=== PATIENT | female | born 1960 | race Caucasian/White ===

== ENCOUNTER 2018-12-24 06:47 | Emergency (ER) | payer BC, SELFPAY ==
[2018-12-24 06:53] VITALS: BP 153/92; PULSE 89; RESP 20; TEMP 37.5; O2SAT 97
[2018-12-24] MEDS: Dexamethasone 4 MG TAB 8 MG PO (07:30)
--- NOTE | 2018-12-24 07:40 | ED.GENADUL_ITS ---
Discharge Plan Disposition Patient Disposition: HOME Condition: Stable Discharge Details Chief Complaint: FacialProb Clinical Impression: Adverse drug reaction Primary Care Provider: Lois Rosa ED Provider: Medardo Moreira Home Meds and New Rx's Prescriptions: New dexamethasone [dexamethasone] 4 MG tablet 8 mg PO DAILY Qty: 4 RF: 0 No Action Ibuprofen [Ibuprofen Ib] 200 MG Tablet 800 mg PO TID PRN PRNRF: 0 Discharge Instructions Additional Instructions: 1. Drink plenty of fluids. 2. Continue all medications as prescribed. 3. Acetaminophen 1000mg every 4 hours (up to 5 time a day) and/or ibuprofen 600mg every 6 hours as needed for fever or pain. 4. Decadron 8 mg once a day starting tomorrow 5. Benadryl 25-50 mg every 6 hours as needed 6. Ranitidine 300 mg once a day at bedtime as needed. Return to the Emergency Department (ED) if your condition worsens, does not improve as expected, or for ANY other concerns. Specifically, return if you have new or uncontrolled pain, worsening fever, difficulty breathing, vomiting, or are unable to drink fluids. Medical Decision Making Recent reaction to a dental implant with subsequent bone graft and limited treatment with amoxicillin. Completed her full course of antibiotics yesterday and then subsequently developed a generalized truncal rash which now involves her face at this morning. Rash is pruritic and mildly improved after she took oral diphenhydramine. Presents with persistent swelling, generalized exanthem, and mild subjective throat fullness when she swallows. Exam significant for generalized maculopapular rash with mild facial swelling. Otherwise nonfocal exam including no clinical evidence of worsening infective process at her tooth transplant site. Treated here with oral Decadron and oral ranitidine. Discharged home with a prescription for Decadron. She will follow-up with her oral surgeon today and return here for any worsening or concerning symptoms. Pt evaluated immediately prior to discharge with improved symptoms, normal vital signs, and tolerating PO. The patient feels appropriate for discharge home. Discussed clinical/diagnostic findings. Discharged with a clear plan for outpatient follow up. Given usual and customary return instructions prior to discharge. Differential Diagnosis Dental infection, cellulitis, Armando-Daroi syndrome Medical Records Medical records reviewed: Yes I reviewed the patient's medical records. HPI 58-year-old woman with an unremarkable past medical history. Had a dental implant placed in October which subsequently had a significant reaction and was removed. A bone graft was successfully placed and she recently completed a full course of amoxicillin with associated resolution of soft tissue swelling. She completed her last dose of amoxicillin yesterday. During the day, she developed a generalized pruritic rash on her trunk which has since spread. This morning, she noted worsened rash, pruritus, and bilateral facial swelling. She took 2 oral Benadryl with moderate improvement in subjective pruritus. However, presents with persistent facial swelling and a generalized pruritic exam. She notes mild subjective throat fullness when she swallows. Otherwise denies dyspnea, significant throat tightness, palpitations, or subjective lightheadedness. She has no history of previous similar symptoms. She does note that the implant area has been stable in terms of pain/tenderness has had no increase in erythema, tenderness, or local swelling. General Date/Time Provider Initiated Documentation: 12/24/18 07:22 . Related Data Home Medications Medication Instructions Recorded Confirmed Ibuprofen [Ibuprofen Ib] 800 mg PO TID PRN PRN 12/08/17 12/24/18 dexamethasone 8 mg PO DAILY #4 tab 12/24/18 Previous Rx's Medication Instructions Recorded dexamethasone 8 mg PO DAILY #4 tab 12/24/18 Allergies Allergy/AdvReac Type Severity Reaction Status Date / Time No Known Allergies Allergy Unverified 12/24/18 06:56 General Stated Complaint: FacialProb TAM: 3 Review of Systems Review of Systems All systems are reviewed and are unremarkable except as noted in HPI and below: CONSTITUTIONAL: no fevers/chills, no weakness or change in appetite EYES: no change in vision HEENT: no throat pain; mild throat fullness with swallowing; no neck pain CARDIOVASCULAR: no chest pain, palpitations, leg swelling, or diaphoresis RESPIRATORY: no cough, dyspnea, wheezing GASTROINTESTINAL: no abdominal pain, melena, nausea/emesis GENITOURINARY: no dysuria, flank pain, MUSCULOSKELETAL: no pack pain, myalgias, arthralgias INTEGUMENTARY: Generalized truncal exanthem; bilateral facial swelling with fine rash, no wounds NEUROLOGIC: no headache, focal weakness, difficulty with speech, numbness PSYCHIATRIC: no confusion, no anxiety HEME: no easy bruising or bleeding ALLERGIC: no urticaria PFSH Social History Smoking/Tobacco Use Status: Never Alcohol Intake: never Substance use type: does not use Do you feel safe in your relationship?: Yes Exam Narrative Exam Narrative: Nursing note and vital signs have been reviewed and noted. GENERAL: alert, active, no acute distress, well -hydrated, well-nourished HEENT: atraumatic/normocephalic, PERRLA, EOMI, conjunctiva clear, external ears/canals normal, nasal mucosa normal; right upper incisor graft site with no significant soft tissue swelling, tenderness, or fluctuance. NECK: supple, full range of motion CARDIOVASCULAR: nl pulses, no edema PULMONARY: nl effort, no audible wheezing or stridor ABDOMEN: non-distended EXTREMITY: normal muscle tone, all joints with FROM, no deformity NUERO: normal mentation, moving all extremities, normal stance and gait, PSYCH: alert and oriented SKIN: Generalized truncal macular papular exanthem; bilateral facial swelling with fine generalized exanthem Course Vital Signs Temperature 99.5 F 12/24/18 06:53 Pulse 89 12/24/18 06:53 Respiratory Rate 20 12/24/18 06:53 Blood Pressure 153/92 H 12/24/18 06:53 Pulse Oximetry 97 12/24/18 06:53 Temperature 99.5 F 12/24/18 06:53 Temperature Source Temporal Artery Scan 12/24/18 06:53 Pulse 89 12/24/18 06:53 Respiratory Rate 20 12/24/18 06:53 Respiratory Effort Non-Labored 12/24/18 06:53 Blood Pressure 153/92 H 12/24/18 06:53 Pulse Oximetry 97 12/24/18 06:53 Oxygen Delivery Method Room Air 12/24/18 06:53 Oxygen Flow Rate 0 12/24/18 06:53 Pain Level 1 12/24/18 06:56
[2018-12-24 07:49] VITALS: BP 153/92; PULSE 89; RESP 20; TEMP 37.5; O2SAT 97
== END 2018-12-24 07:48 | disposition home or self-care (01) ==
PROVIDERS: Emergency Provider Emergency Medicine; PCP Nurse Practitioner Family
DX: R21 Rash and other nonspecific skin eruption (principal); R22.0 Localized swelling, mass and lump, head; Z98.818 Other dental procedure status
CPT/HCPCS: 99283; J8540

== ENCOUNTER 2019-01-29 11:43 | Emergency (ER) | payer BC, SELFPAY ==
[2019-01-29 11:54] VITALS: BP 124/83; PULSE 76; RESP 14; TEMP 36.5; O2SAT 97
--- NOTE | 2019-01-29 12:15 | W.ED.GENAD ---
Discharge Plan Disposition Patient Disposition: HOME Condition: Fair Discharge Details Chief Complaint: Laceration Clinical Impression: Puncture wound of hand Primary Care Provider: Lois Rosa ED Provider: Aminta Avitia Home Meds and New Rx's Prescriptions: New clindamycin HCl 150 mg capsule 450 mg PO TID Qty: 45 RF: 0 Continued mometasone [Nasonex] 50 mcg/actuation [place],Non-Aerosol 1 spray Intranasal PRN PRNRF: 0 Discharge Instructions Instructions: Puncture Wound (ED) Additional Instructions: Keep wound clean, dry, covered. Please monitor for signs of infection including redness, warmth, drainage, increased pain, fever/chills. If these arise please begin antibiotic as prescribed. If you begin the antibiotic please take the entire course even if symptoms improve. Symptoms increase please seek care urgently once again. Please follow-up with primary care next week if needed. Referrals: Lois Rosa [Primary Care Provider] - Discharge Data Discharge Date/Time-TO BE ENTERED AT DEPARTURE: 01/29/19 12:33 Medical Decision Making Patient is a [id number] 58-year-old female presenting today for a laceration on the right palm. She reports a prior to arrival she was trying to remove the pit from an avocado with the point of knife when she slipped impaling herself. She denies any altered sensation. Denies any weakness in the hand. Wound is on the radial side of the palm just proximal to the MCP joint. Approximately 4 mm in width. There is a small amount of fatty tissue extruding from the wound. Two-point discrimination is intact, ligamentous exam is intact. At this point, this appears to be more of a puncture wound than a superficial laceration, I am hesitant to close this is I am concerned with the increased risk of infection. Patient is unclear of tetanus, we will check this and update today if needed. Wound was flushed and cleansed by myself. Dressing applied by nursing staff. Patient I discussed wound care and. As we are going to the weekend, I will prescribe antibiotic for watch and wait approach in the event that infection becomes evident. She was given strict return precautions and advised follow-up with primary care next week as needed. All the questions and concerns were addressed and she is in agreement this plan HPI General Mode of arrival: ambulatory. Date/Time Provider Initiated Documentation: 01/29/19 11:53. Limitations to Documentation: no limitations. Information obtained by: patient and RN notes reviewed. History of Present Illness 58 year old F presents to the emergency department with the chief complaint of right palm laceration, described as mild, with intensity rated at 2. Quality is described as aching, and is localized to the left and upper extremity. Patient reports no radiation. Patient started experiencing this minute(s) and it has been constant. No relieving factors improve symptom(s), No exacerbating factors reported . Patient notes no other symptoms.. Patient did receive the following treatments prior to arrival, none Related Data Home Medications Medication Instructions Recorded Confirmed clindamycin HCl 450 mg PO TID #45 cap 01/29/19 mometasone [Nasonex] 1 spray INTRANASAL PRN PRN 01/29/19 01/29/19 Previous Rx's Medication Instructions Recorded clindamycin HCl 450 mg PO TID #45 cap 01/29/19 Allergies Allergy/AdvReac Type Severity Reaction Status Date / Time amoxicillin AdvReac Intermediate rash/throat Unverified 01/29/19 11:58 feels thick gold Au 198 AdvReac Mild scrathcy Unverified 01/29/19 11:59 rash nickel AdvReac Mild scratchy Unverified 01/29/19 11:59 rash General Stated Complaint: Laceration TAM: 4 Review of Systems Constitutional Reports as per HPI, Denies chills and Denies fever(s) Musculoskeletal Reports as per HPI Integumentary/Breasts Reports as per HPI Neurologic Reports as per HPI, Denies sensory deficit and Denies paresthesias PFSH Social History Smoking/Tobacco Use Status: Never Alcohol Intake: never Substance use type: does not use Do you feel safe at home: Yes Do you feel safe in your relationship?: Yes Exam Const General: cooperative, healthy appearing, comfortable, no acute distress and well developed Nutritional Appearance: average body habitus and well nourished Orientation: alert and awake Resp Effort & Inspection: normal respiratory effort, able to speak in complete sentences and no respiratory distress Cardio Rate: regular rate Rhythm: regular rhythm Skin Trauma: laceration (5mm lac to right palm, not actively bleeding) Neuro General: alert and awake Cognition: normal cognition Speech: speech normal Gait: normal gait Sensory Exam: no sensory deficits noted Extrem General: abnormal to inspection (laceration as above), full ROM, normal capillary refill, no joint enlargement and no clubbing, cyanosis or edema Right upper extremity: full ROM, normal capillary refill, no joint enlargement and hand Details: normal capillary refill, neuromotor exam normal, neurosensory exam normal, tendon exam normal, tenderness (around laceration) and normal ROM of fingers; abnormal to inspection (laceration) and no cyanosis Psych Appearance: grossly normal and well kempt Mental Status: mental status grossly normal Speech and Movement: speech and movement normal Course Vital Signs Temperature 36.5 C 01/29/19 11:54 Pulse 76 01/29/19 11:54 Respiratory Rate 14 01/29/19 11:54 Blood Pressure 124/83 01/29/19 11:54 Pulse Oximetry 97 01/29/19 11:54 Temperature 36.5 C 01/29/19 11:54 Temperature Source Skin 01/29/19 11:54 Pulse 76 01/29/19 11:54 Respiratory Rate 14 01/29/19 11:54 Blood Pressure 124/83 01/29/19 11:54 Blood Pressure Position Sitting 01/29/19 11:54 Pulse Oximetry 97 01/29/19 11:54 Oxygen Delivery Method Room Air 01/29/19 11:54 Oxygen Flow Rate 0 01/29/19 11:54 Pain Level 2 01/29/19 12:01
--- NOTE | 2019-01-29 12:24 | ED.GENADUL_ITS ---
Discharge Plan Disposition Patient Disposition: HOME Condition: Fair Discharge Details Chief Complaint: Laceration Clinical Impression: Puncture wound of hand Primary Care Provider: Lois Rosa ED Provider: Aminta Avitia Home Meds and New Rx's Prescriptions: New clindamycin HCl 150 mg capsule 450 mg PO TID Qty: 45 RF: 0 Continued mometasone [Nasonex] 50 mcg/actuation [place],Non-Aerosol 1 spray Intranasal PRN PRNRF: 0 Discharge Instructions Instructions: Puncture Wound (ED) Additional Instructions: Keep wound clean, dry, covered. Please monitor for signs of infection including redness, warmth, drainage, increased pain, fever/chills. If these arise please begin antibiotic as prescribed. If you begin the antibiotic please take the entire course even if symptoms improve. Symptoms increase please seek care urgently once again. Please follow-up with primary care next week if needed. Referrals: Lois Rosa [Primary Care Provider] - Discharge Data Discharge Date/Time-TO BE ENTERED AT DEPARTURE: 01/29/19 12:33 Medical Decision Making Patient is a [id number] 58-year-old female presenting today for a laceration on the right palm. She reports a prior to arrival she was trying to remove the pit from an avocado with the point of knife when she slipped impaling herself. She denies any altered sensation. Denies any weakness in the hand. Wound is on the radial side of the palm just proximal to the MCP joint. Approximately 4 mm in width. There is a small amount of fatty tissue extruding from the wound. Two-point discrimination is intact, ligamentous exam is intact. At this point, this appears to be more of a puncture wound than a superficial laceration, I am hesitant to close this is I am concerned with the increased risk of infection. Patient is unclear of tetanus, we will check this and update today if needed. Wound was flushed and cleansed by myself. Dressing applied by nursing staff. Patient I discussed wound care and. As we are going to the weekend, I will prescribe antibiotic for watch and wait approach in the event that infection becomes evident. She was given strict return precautions and advised follow-up with primary care next week as needed. All the questions and concerns were addressed and she is in agreement this plan HPI General Mode of arrival: ambulatory . Date/Time Provider Initiated Documentation: 01/29/19 11:53 . Limitations to Documentation: no limitations . Information obtained by: patient and RN notes reviewed . History of Present Illness 58 year old F presents to the emergency department with the chief complaint of right palm laceration, described as mild, with intensity rated at 2. Quality is described as aching, and is localized to the left and upper extremity. Patient reports no radiation. Patient started experiencing this minute(s) and it has been constant. No relieving factors improve symptom(s), No exacerbating factors reported . Patient notes no other symptoms.. Patient did receive the following treatments prior to arrival, none Related Data Home Medications Medication Instructions Recorded Confirmed clindamycin HCl 450 mg PO TID #45 cap 01/29/19 mometasone [Nasonex] 1 spray INTRANASAL PRN PRN 01/29/19 01/29/19 Previous Rx's Medication Instructions Recorded clindamycin HCl 450 mg PO TID #45 cap 01/29/19 Allergies Allergy/AdvReac Type Severity Reaction Status Date / Time amoxicillin AdvReac Intermediate rash/throat Unverified 01/29/19 11:58 feels thick gold Au 198 AdvReac Mild scrathcy Unverified 01/29/19 11:59 rash nickel AdvReac Mild scratchy Unverified 01/29/19 11:59 rash General Stated Complaint: Laceration TAM: 4 Review of Systems Constitutional Reports as per HPI, Denies chills and Denies fever(s) Musculoskeletal Reports as per HPI Integumentary/Breasts Reports as per HPI Neurologic Reports as per HPI, Denies sensory deficit and Denies paresthesias PFSH Social History Smoking/Tobacco Use Status: Never Alcohol Intake: never Substance use type: does not use Do you feel safe at home: Yes Do you feel safe in your relationship?: Yes Exam Const General: cooperative, healthy appearing, comfortable, no acute distress and well developed Nutritional Appearance: average body habitus and well nourished Orientation: alert and awake Resp Effort & Inspection: normal respiratory effort, able to speak in complete sentences and no respiratory distress Cardio Rate: regular rate Rhythm: regular rhythm Skin Trauma: laceration (5mm lac to right palm, not actively bleeding) Neuro General: alert and awake Cognition: normal cognition Speech: speech normal Gait: normal gait Sensory Exam: no sensory deficits noted Extrem General: abnormal to inspection (laceration as above), full ROM, normal capillary refill, no joint enlargement and no clubbing, cyanosis or edema Right upper extremity: full ROM, normal capillary refill, no joint enlargement and hand Details: normal capillary refill, neuromotor exam normal, neurosensory exam normal, tendon exam normal, tenderness (around laceration) and normal ROM of fingers; abnormal to inspection (laceration) and no cyanosis Psych Appearance: grossly normal and well kempt Mental Status: mental status grossly normal Speech and Movement: speech and movement normal Course Vital Signs Temperature 36.5 C 01/29/19 11:54 Pulse 76 01/29/19 11:54 Respiratory Rate 14 01/29/19 11:54 Blood Pressure 124/83 01/29/19 11:54 Pulse Oximetry 97 01/29/19 11:54 Temperature 36.5 C 01/29/19 11:54 Temperature Source Skin 01/29/19 11:54 Pulse 76 01/29/19 11:54 Respiratory Rate 14 01/29/19 11:54 Blood Pressure 124/83 01/29/19 11:54 Blood Pressure Position Sitting 01/29/19 11:54 Pulse Oximetry 97 01/29/19 11:54 Oxygen Delivery Method Room Air 01/29/19 11:54 Oxygen Flow Rate 0 01/29/19 11:54 Pain Level 2 01/29/19 12:01
== END 2019-01-29 12:33 | disposition home or self-care (01) ==
PROVIDERS: Emergency Provider Physician Assistant; PCP Nurse Practitioner Family
DX: S61.431A Puncture wound without foreign body of right hand, initial encounter (principal); W26.0XXA Contact with knife, initial encounter
CPT/HCPCS: 99282

== ENCOUNTER 2019-07-08 01:27 | Outpatient (CLI) | payer BC, SELFPAY ==
--- NOTE | 2019-07-08 14:12 | DI.MAMMO_ITS ---
EXAM: MG MAMMO SCREENING CLINICAL HISTORY: SCREENING, Z12.31. TECHNIQUE: Bilateral full field digital CC and MLO mammographic images were obtained with 3D tomosyn thesis and utilizing computer aided detection (CAD). COMPARISON: Comparison 2013 through 2017. FINDINGS: Right breast. Masses/Architectural Distortion: None seen. Microcalcifications: No suspicious pleomorphic-type are seen. Skin Thickening/Nipple Retraction: None. Left breast: In the lower inner quadrant of the left breast, there is a question of an area of tena ectural distortion. Spot compression views and ultrasound requested for further evaluation. Coarse, benign-appearing calcifications are also seen in this area. These appear stable. IMPRESSION: Right breast category 1, negative. Left breast BI-RADS Cat 0 - Assessment Incomplete: Need additional imaging evaluation The mammogram demonstrates the patient's breast tissue is dense. Dense breast tissue is very common a nd is not abnormal but dense breast tissue can make it harder to find cancer on a mammogram. Also, de nse breast tissue may increase their breast cancer risk. [facility] was provided to the patient to raise their awareness. Use this report when you speak wi th the patient about their risks for breast cancer, which includes their family history. At that time , you may recommend for more screening tests (Ultrasound or MRI) as they might be useful based on the ir risk. A negative radiographic report should not delay biopsy if a dominant or clinically suspicious mass is present. Up to ten percent of cancers are not identified on mammography. A negative report may reinforce clinical impression. Adenosis and dense breasts may obscure an underlying neoplasm. False positive reports average 6 to 10%. BI-RADS Cat 0 - Assessment Incomplete: Need additional imaging evaluation. Breast Density - Category C - Heterogeneously dense.
== END 2019-07-08 01:47 ==
PROVIDERS: PCP Nurse Practitioner Family; Visit Provider Nurse Practitioner Family
DX: Z12.31 Encounter for screening mammogram for malignant neoplasm of breast (principal); R92.8 Other abnormal and inconclusive findings on diagnostic imaging of breast
CPT/HCPCS: 77063; 77067

== ENCOUNTER 2019-07-16 00:20 | Outpatient (CLI) | payer BC, SELFPAY ==
--- NOTE | 2019-07-16 14:49 | DI.MAMMO_ITS ---
EXAM: MG MAMMO SCREEN CALL BACK UNI MG MAMMO SCREEN CALL BACK UNI CLINICAL HISTORY: F/U MAMMO,? ARCHITECTURAL DISTORTION LOWER INNER QUAD LT BREAST F/U MAMMO,? ARCHITECTURAL DISTORTION LOWER INNER QUAD LT BREAST TECHNIQUE: Mammograms were interpreted according to the usual protocol including computer analysis w [employer] CAD system, tomosynthesis and C-view imaging. COMPARISON: 2013 through 2018. FINDINGS: Is cc and MLO spot-compression views with tomography were performed. There is no persistent abnormal ity in the lower inner quadrant. The findings are consistent with overlying fibroglandular tissue. There has been no change in coarse calcifications. IMPRESSION: BIRADS Category 1, negative mammogram. Yearly screening mammography is recommended. BREAST DENSITY: The mammogram demonstrates the patient's breast tissue is dense. Dense breast tissue is very common and is not abnormal but dense breast tissue can make it harder to find cancer on a ma mmogram. Also, dense breast tissue may increase their breast cancer risk. This information about the result of the mammogram report was provided to the patient to raise their awareness. Use this report when you speak with the patient about their risks for breast cancer, which includes their family hist ory. At that time, you may recommend for more screening tests (Ultrasound or MRI) as they might be us eful based on their risk. A negative radiographic report should not delay biopsy if a dominant or clinically suspicious mass is present. Up to ten percent of cancers are not identified on mammography. A negative report may reinforce clinical impression. Adenosis and dense breasts may obscure an underlying neoplasm. False positive reports average 6 to 10%.
== END 2019-07-16 00:40 ==
PROVIDERS: PCP Nurse Practitioner Family; Visit Provider Nurse Practitioner Family
DX: Z12.31 Encounter for screening mammogram for malignant neoplasm of breast (principal); R92.8 Other abnormal and inconclusive findings on diagnostic imaging of breast; N64.59 Other signs and symptoms in breast
CPT/HCPCS: 77063; 77067

== ENCOUNTER 2020-09-14 00:14 | Outpatient (CLI) | payer BC, SELFPAY ==
--- NOTE | 2020-09-14 12:55 | DI.MAMMO_ITS ---
EXAM: MG MAMMO SCREENING CLINICAL HISTORY: SCREENING,Z12.31. TECHNIQUE: Bilateral full field digital CC and MLO mammographic images were obtained with 3D tomosyn thesis and utilizing computer aided detection (CAD). COMPARISON: Prior mammograms dating back to 2013, the most recent being June 2019. FINDINGS: The fibroglandular tissue is dense, this decreasing the sensitivity of the mammogram for finding hidd en underlying lesions. There are no spiculated masses nor malignant appearing microcalcification groups. Stable benign-appea ring lymph nodes noted in both breast. There is no significant architectural distortion nor skin thic kening-retraction. IMPRESSION: Dense bilateral fibroglandular tissue. No obvious radiographic evidence of malignancy. BI-RADS Category 1 - Negative Breast Density - Category C - Heterogeneously dense Breast density Category C or D implies that the patient has dense breast tissue. Dense breast tissue can make it harder to find cancer on a mammogram. Dense breast tissue is also associated with an incr eased risk of breast cancer. This information about the result of the mammogram report was provided to the patient to raise their awareness. Use this report when you speak with the patient about their risks for breast cancer, which includes their family history. At that time, you may recommend additional screening tests (Ultrasoun d or MRI) as these tests may add significant information. A negative radiographic report should not delay biopsy if a dominant or clinically suspicious mass is present. Up to ten percent of cancers are not identified on mammography. A negative report may reinforce clinical impression. Adenosis and dense breasts may obscure an underlying neoplasm. False positive reports average 6 to 10%. Patient will receive a letter notifying them of these results.
== END 2020-09-14 00:34 ==
PROVIDERS: PCP Nurse Practitioner Family; Visit Provider Nurse Practitioner Family
DX: Z12.31 Encounter for screening mammogram for malignant neoplasm of breast (principal)
CPT/HCPCS: 77063; 77067

== ENCOUNTER 2021-03-13 09:06 | Outpatient (REF) | payer BC, SELFPAY ==
[2021-03-13 14:29] LABS: Abs Immature Grans 0.01 10^3/uL (0.0-0.06); Absolute Basophil Count 0.02 10^3/uL (0.0-0.2); Absolute Eosinophil Count 0.11 10^3/uL (0.0-0.7); Absolute Lymphocyte Count 1.88 10^3/uL (1.2-3.4); Absolute Monocyte Count 0.66 10^3/uL (0.1-0.8); Absolute Neutrophil Count 3.63 10^3/uL (1.2-6.7); Basophils % 0.3; Eosinophils % 1.7; HCT 44.5 % (36.0-46.0); HGB 14.7 g/dL (11.2-15.7); Immature Grans % 0.2; Lymphocytes % 29.8; MCH 29.4 pg (27.0-33.0); MPV 10.6 fL (8.0-11.0); Monocytes % 10.5; Neutrophils % 57.5; Nucleated RBC 0 %; Platelet Count 298 10^3/uL (130-400); RDW 12.7 % (11.7-14.6); RDW-SD 41.4 fL; WBC 6.31 10^3/uL (4.4-10.8)
[2021-03-13 14:42] LABS: ESR 24 mm/hr (0-30)
[2021-03-13 15:07] LABS: ALT 39 U/L (14-59); AST 25 U/L (15-37); Albumin 4.4 g/dL (3.4-5.0); Alkaline Phosphatase 79 U/L (46-116); Anion Gap 12.3 mmol/L (3-11); BUN 14 mg/dL (7-18); Bilirubin, Total 0.5 mg/dL (0.2-1.0); CO2 25.7 mmol/L (21.0-32.0); CREATININE 0.8 mg/dL (0.55-1.02); Calcium 9.7 mg/dL (8.5-10.1); Chloride 104 mmol/L (98-107); Glucose 104 mg/dL (74-106); Potassium 3.9 mmol/L (3.5-5.1); Sodium 142 mmol/L (136-145); TSH (W/Ref FT4) 2.16 uIU/mL (0.36-3.74); Total Protein 7.9 g/dL (6.4-8.2)
[2021-03-14 13:00] LABS: Lyme Ab w Rflx to Lyme Confirm Negative (Negative)
[2021-03-15 15:56] LABS: Anaplasma phagocytophilum Negative (Negative); B. miyamotoi PCR Negative (Negative); Babesia divergens/MO-1 Negative (Negative); Babesia duncani Negative (Negative); Babesia microti Negative (Negative); Ehrlichia chaffeensis Negative (Negative); Ehrlichia ewingii/canis Negative (Negative); Ehrlichia muris eauclairensis Negative (Negative)
== END 2021-03-13 09:07 | disposition home or self-care (01) ==
LOC: NCHCN 09:06
PROVIDERS: PCP Nurse Practitioner Family; Visit Provider Family Medicine
DX: R53.81 Other malaise (principal)
CPT/HCPCS: 80053; 85652; 87798; 84443; 85025; 86618

== ENCOUNTER 2022-03-27 14:54 | Outpatient (REF) | payer BC, SELFPAY ==
[2022-03-27 19:31] LABS: HCT 42.4 % (36.0-46.0); HGB 13.9 g/dL (11.2-15.7); MCH 29.6 pg (27.0-33.0); MCHC 32.8 % (32.0-36.0); MCV 90 fL (80-95); Platelet Count 287 10^3/uL (130-400); RDW 12.6 % (11.7-14.6); RDW-SD 41.8 fL
[2022-03-27 20:13] LABS: ALT 32 U/L (14-59); AST 20 U/L (15-37); Albumin 4.1 g/dL (3.4-5.0); Alkaline Phosphatase 76 U/L (46-116); BUN 17 mg/dL (7-18); Bilirubin, Total 0.4 mg/dL (0.2-1.0); CREATININE 0.9 mg/dL (0.55-1.02); Calcium 9.3 mg/dL (8.5-10.1); Calculated LDL 92 mg/dL (<100); Chloride 103 mmol/L (98-107); Cholesterol 185 mg/dL (<200); Glucose 135 mg/dL (74-106); HDL Cholesterol 77 mg/dL (40-60); Potassium 3.8 mmol/L (3.5-5.1); Sodium 139 mmol/L (136-145); Total Protein 7.8 g/dL (6.4-8.2); Triglyceride 83 mg/dL (<150)
== END 2022-03-27 14:55 | disposition home or self-care (01) ==
LOC: NCHCN 14:54
PROVIDERS: PCP Nurse Practitioner Family; Visit Provider Nurse Practitioner Family
DX: Z00.00 Encounter for general adult medical examination without abnormal findings (principal); Z13.0 Encounter for screening for diseases of the blood and blood-forming organs and certain disorders involving the immune mechanism; Z13.220 Encounter for screening for lipoid disorders; Z13.228 Encounter for screening for other metabolic disorders
CPT/HCPCS: 80053; 80061; 85027

== ENCOUNTER → 2022-05-08 02:43 | Outpatient (CLI) | payer BC, SELFPAY ==
--- NOTE | 2022-05-08 12:00 | DI.MAMMO_ITS ---
Exam(s) MAMMO SCREENING EXAM: MAMMO SCREENING CLINICAL HISTORY: SCREENING, Z12.39 TECHNIQUE: Mammograms were interpreted according to the usual protocol including computer analysis w [employer] CAD system, tomosynthesis and C-view imaging. COMPARISON: 2013 through 2019 FINDINGS: The breasts are composed of heterogeneously dense fibroglandular densities, Breast Density category C . No suspicious masses or suspicious microcalcifications are seen. No skin thickening or abnormal axillary lymph nodes are seen. There has been no significant change from prior exams. IMPRESSION: BI-RADS Category 1, Negative mammogram. Yearly screening mammography is recommended. Breast Density Category C, heterogeneously Dense. The mammogram demonstrates the patient's breast tissue is dense. Dense breast tissue is very common a nd is not abnormal but dense breast tissue can make it harder to find cancer on a mammogram. Also, de nse breast tissue may increase breast cancer risk. This information about the result of the mammogram report was provided to the patient to raise their awareness. Use this report when you speak with the patient about their risks for breast cancer, which includes their family history. At that time, you may recommend additional screening tests (Ultrasound or MRI) as they might be useful based on their r isk. A negative radiographic report should not delay biopsy if a dominant or clinically suspicious mass is present. Up to ten percent of cancers are not identified on mammography. A negative report may reinforce clinical impression. Adenosis and dense breasts may obscure an underlying neoplasm. False positive reports average 6 to 10%.
== END ==
PROVIDERS: PCP Nurse Practitioner Family; Visit Provider Nurse Practitioner Family
DX: Z12.31 Encounter for screening mammogram for malignant neoplasm of breast (principal); R92.8 Other abnormal and inconclusive findings on diagnostic imaging of breast
CPT/HCPCS: 77063; 77067

== ENCOUNTER 2023-05-23 08:43 | Outpatient (REF) | payer BC, SELFPAY ==
[2023-05-23 15:49] LABS: HGB 14.5 g/dL (11.2-15.7); MCH 28.9 pg (27.0-33.0); MCV 88 fL (80-95); MPV 10.9 fL (8.0-11.0); Platelet Count 327 10^3/uL (130-400); RBC 5.01 10^6/uL (3.93-5.22); RDW 12.7 % (11.7-14.6); RDW-SD 40.9 fL; WBC 5.08 10^3/uL (4.4-10.8)
[2023-05-23 16:30] LABS: ALT 49 U/L (14-59); AST 25 U/L (15-37); Alkaline Phosphatase 114 U/L (46-116); Anion Gap 8.8 mmol/L (3-11); BUN 15 mg/dL (7-18); Bilirubin, Total 0.5 mg/dL (0.2-1.0); CO2 27.2 mmol/L (21.0-32.0); CREATININE 0.9 mg/dL (0.55-1.02); Calcium 9.7 mg/dL (8.5-10.1); Chloride 103 mmol/L (98-107); Estimated GFR 72.28 (mL/min/1.73m2); Glucose 110 mg/dL (74-106); Sodium 139 mmol/L (136-145); Total Protein 7.5 g/dL (6.4-8.2)
== END 2023-05-23 08:44 | disposition home or self-care (01) ==
LOC: NCHCN 08:43
PROVIDERS: PCP Nurse Practitioner Family; Visit Provider Nurse Practitioner Family
DX: Z00.00 Encounter for general adult medical examination without abnormal findings (principal); Z13.228 Encounter for screening for other metabolic disorders; Z13.0 Encounter for screening for diseases of the blood and blood-forming organs and certain disorders involving the immune mechanism
CPT/HCPCS: 80053; 85027

== ENCOUNTER → 2023-05-29 01:15 | Outpatient (CLI) | payer BC, SELFPAY ==
--- NOTE | 2023-05-29 | DI.MAMMO_ITS ---
Exam(s) MAMMO SCREENING EXAM: MAMMO SCREENING CLINICAL HISTORY: SCREENING, Z12.39 TECHNIQUE: Mammograms were interpreted according to the usual protocol including computer analysis w [employer] CAD system, tomosynthesis and C-view imaging. COMPARISON: 2013 through 2021 FINDINGS: The breasts are composed of heterogeneously dense fibroglandular densities, Breast Density category C . No suspicious masses or suspicious microcalcifications are seen. No skin thickening or abnormal axillary lymph nodes are seen. There has been no significant change from prior exams. IMPRESSION: BI-RADS Category 1, Negative mammogram. Yearly screening mammography is recommended. Breast Density Category C, heterogeneously Dense. The mammogram demonstrates the patient's breast tissue is dense. Dense breast tissue is very common a nd is not abnormal but dense breast tissue can make it harder to find cancer on a mammogram. Also, de nse breast tissue may increase breast cancer risk. This information about the result of the mammogram report was provided to the patient to raise their awareness. Use this report when you speak with the patient about their risks for breast cancer, which includes their family history. At that time, you may recommend additional screening tests (Ultrasound or MRI) as they might be useful based on their r isk. A negative radiographic report should not delay biopsy if a dominant or clinically suspicious mass is present. Up to ten percent of cancers are not identified on mammography. A negative report may reinforce clinical impression. Adenosis and dense breasts may obscure an underlying neoplasm. False positive reports average 6 to 10%.
== END ==
PROVIDERS: PCP Nurse Practitioner Family; Visit Provider Nurse Practitioner Family
DX: Z12.31 Encounter for screening mammogram for malignant neoplasm of breast (principal)
CPT/HCPCS: 77063; 77067

== ENCOUNTER 2024-08-18 15:55 | Outpatient (REF) | payer BC, SELFPAY ==
[2024-08-18 21:51] LABS: HCT 44.7 % (36.0-46.0); HGB 14.7 g/dL (11.2-15.7); MCH 29.3 pg (27.0-33.0); MCHC 32.9 % (32.0-36.0); MCV 89 fL (80-95); MPV 10.7 fL (8.0-11.0); Platelet Count 313 10^3/uL (130-400); RBC 5.02 10^6/uL (3.93-5.22); RDW 12.8 % (11.7-14.6); RDW-SD 41.8 fL; WBC 5.98 10^3/uL (4.4-10.8)
[2024-08-18 22:15] LABS: ALT 78 U/L (14-59); AST 44 U/L (15-37); Albumin 4.1 g/dL (3.4-5.0); Alkaline Phosphatase 147 U/L (46-116); Anion Gap 11.1 mmol/L (3-11); BUN 16 mg/dL (7-18); Bilirubin, Total 0.31 mg/dL (0.2-1.0); CO2 26.9 mmol/L (21.0-32.0); Calcium 9.7 mg/dL (8.5-10.1); Calculated LDL 115 mg/dL (<100); Chloride 105 mmol/L (98-107); Cholesterol 223 mg/dL (<200); Glucose 96 mg/dL (74-106); HDL Cholesterol 93 mg/dL (40-60); Sodium 143 mmol/L (136-145); Total Protein 7.8 g/dL (6.4-8.2); Triglyceride 77 mg/dL (<150)
== END 2024-08-18 15:56 | disposition home or self-care (01) ==
LOC: NCHCN 15:55
PROVIDERS: PCP Nurse Practitioner Family; Visit Provider Nurse Practitioner Family
DX: Z00.00 Encounter for general adult medical examination without abnormal findings (principal)
CPT/HCPCS: 80053; 80061; 85027

== ENCOUNTER 2024-08-31 02:19 | Outpatient (CLI) | payer BC, SELFPAY ==
--- NOTE | 2024-08-31 12:54 | DI.MAMMO_ITS ---
Exam(s) MAMMO SCREENING EXAM: MAMMO SCREENING CLINICAL HISTORY: SCREENING MAMMO Z12.39 TECHNIQUE: Mammograms were interpreted according to the usual protocol including computer analysis w [employer] CAD system, tomosynthesis and C-view imaging. COMPARISON: 2014 through 2022 FINDINGS: The breasts are composed of heterogeneously dense fibroglandular densities, Breast Density category C . No suspicious masses or suspicious microcalcifications are seen. No skin thickening or abnormal axillary lymph nodes are seen. There has been no significant change from prior exams. IMPRESSION: BI-RADS Category 1, Negative mammogram. Yearly screening mammography is recommended. Breast Density Category C, heterogeneously Dense. The mammogram demonstrates the patient's breast tissue is dense. Dense breast tissue is very common a nd is not abnormal but dense breast tissue can make it harder to find cancer on a mammogram. Also, de nse breast tissue may increase breast cancer risk. This information about the result of the mammogram report was provided to the patient to raise their awareness. Use this report when you speak with the patient about their risks for breast cancer, which includes their family history. At that time, you may recommend additional screening tests (Ultrasound or MRI) as they might be useful based on their r isk. A negative radiographic report should not delay biopsy if a dominant or clinically suspicious mass is present. Up to ten percent of cancers are not identified on mammography. A negative report may reinforce clinical impression. Adenosis and dense breasts may obscure an underlying neoplasm. False positive reports average 6 to 10%.
== END 2024-08-31 02:39 ==
LOC: DI 02:20
PROVIDERS: PCP Nurse Practitioner Family; Visit Provider Nurse Practitioner Family
DX: Z12.31 Encounter for screening mammogram for malignant neoplasm of breast (principal); R92.333 Mammographic heterogeneous density, bilateral breasts
CPT/HCPCS: 77063; 77067

== ENCOUNTER 2024-10-12 12:21 | Outpatient (REF) | payer BC, SELFPAY ==
[2024-10-12 15:28] LABS: ALT 69 U/L (14-59); AST 37 U/L (15-37); Alkaline Phosphatase 133 U/L (46-116)
== END 2024-10-12 12:22 | disposition home or self-care (01) ==
LOC: NCHCN 12:21
PROVIDERS: PCP Nurse Practitioner Family; Visit Provider Nurse Practitioner Family
DX: R79.9 Abnormal finding of blood chemistry, unspecified (principal)
CPT/HCPCS: 84075; 84450; 84460

== ENCOUNTER 2025-08-24 14:21 | Outpatient (REF) | payer BC, SELFPAY ==
[2025-08-24 16:15] LABS: HCT 45.2 % (36.0-46.0); HGB 14.8 g/dL (11.2-15.7); MCH 28.6 pg (27.0-33.0); MCHC 32.7 % (32.0-36.0); MCV 87 fL (80-95); MPV 10.6 fL (8.0-11.0); Platelet Count 314 10^3/uL (130-400); RBC 5.17 10^6/uL (3.93-5.22); RDW 13.2 % (11.7-14.6); RDW-SD 42.2 fL; WBC 5.83 10^3/uL (4.4-10.8)
[2025-08-24 16:35] LABS: ALT 34 U/L (10-49); AST 32 U/L (<34); Albumin 4.7 g/dL (3.2-5.0); Alkaline Phosphatase 96 U/L (46-116); Anion Gap 8.6 mmol/L (3-11); BUN 15 mg/dL (9-23); Bilirubin, Total 0.50 mg/dL (0.2-1.2); CO2 27.4 mmol/L (20.0-31.0); Calcium 10.4 mg/dL (8.3-10.6); Chloride 105 mmol/L (98-107); Cholesterol 191 mg/dL (<200); Glucose 90 mg/dL (74-106); HDL Cholesterol 86 mg/dL (>40); Potassium 4.1 mmol/L (3.5-5.1); Sodium 141 mmol/L (136-145); Total Protein 7.6 g/dL (5.7-8.2)
== END 2025-08-24 14:22 | disposition home or self-care (01) ==
LOC: NCHCN 14:21
PROVIDERS: PCP Nurse Practitioner Family; Visit Provider Nurse Practitioner Family
DX: R74.8 Abnormal levels of other serum enzymes (principal); E78.5 Hyperlipidemia, unspecified; Z00.00 Encounter for general adult medical examination without abnormal findings
CPT/HCPCS: 80053; 80061; 85027

== ENCOUNTER → 2025-09-27 12:06 | Outpatient (CLI) | payer BC, SELFPAY ==
--- NOTE | 2025-09-27 | DI.MAMMO_ITS ---
Exam(s) MAMMO SCREENING EXAM: MAMMO SCREENING CLINICAL HISTORY: SCREENING, Z12.31. TECHNIQUE: Bilateral full field digital CC and MLO mammographic images were obtained with 3D tomosynthesis and utilizing computer aided detection (CAD). COMPARISON: Prior mammograms were reviewed. FINDINGS: The fibroglandular tissue pattern is again noted be heterogeneously dense. There are no new spiculated masses nor new malignant appearing microcalcification groups. There is no significant architectural distortion nor skin thickening-retraction. IMPRESSION: Dense bilateral fibroglandular tissue. No obvious radiographic evidence of malignancy. BI-RADS Category 1 - Negative Breast Density - Category C - The breast are heterogeneously dense, which may obscure small masses. Breast density Category C or D implies that the patient has dense breast tissue. Dense breast tissue can make it harder to find cancer on a mammogram. Dense breast tissue is also associated with an increased risk of breast cancer. This information about the result of the mammogram report was provided to the patient to raise their awareness. Use this report when you speak with the patient about their risks for breast cancer, which includes their family history. At that time, you may recommend additional screening tests (Ultrasound or MRI) as these tests may add significant information. A negative radiographic report should not delay biopsy if a dominant or clinically suspicious mass is present. Up to ten percent of cancers are not identified on mammography. A negative report may reinforce clinical impression. Adenosis and dense breasts may obscure an underlying neoplasm. False positive reports average 6 to 10%. Patient will receive a letter notifying them of these results.
== END ==
PROVIDERS: PCP Nurse Practitioner Family; Visit Provider Nurse Practitioner Family
DX: Z12.31 Encounter for screening mammogram for malignant neoplasm of breast (principal)
CPT/HCPCS: 77063; 77067